=== PATIENT | female | born 1950 | race Caucasian/White ===

== ENCOUNTER → 2019-04-12 | Outpatient (CLI) | payer MEDICARE, OTHER ==
[~2019-04-12] MED LIST: CHOL100060 PO; ESOM20CA31 PO; EZET1TAB63 PO; IRON1TAB11 PO; MAX75 PO; METO25TA91 PO; MULT-1319 PO; NIAC100T35 PO
--- NOTE | 2019-04-12 14:30 | RADIOLOGY IMAGING REPORT ---
FACILITY: [facility] PATIENT NAME: Everett Ye : 1950 MR: [id number] V: [id number] EXAM DATE: ORDERING PHYSICIAN: TRINI WILLIAM TECHNOLOGIST: [place] [facility] [place] Patient: Everett Ye : 1950 Visit/Account:[id number] Date of Sevice: 04/12/2019 BONE DENSITY Additional Pertinent history: Osteoporosis screening COMPARISON STUDIES: 11/19/2009 FINDINGS: LUMBAR SPINE: The bone mineral density (BMD) measured from L1-L4 correlates with a Z-score of -0.1 and a T-score of -1.7 which is osteopenia as defined by the World Health Organization. The corresponding risk of frac ture in the lumbar spine is increased 3-4 times compared with a young adult reference population. Thi s value has decreased by 8.2% since the prior study. More than 5% change is considered significant. HIP: Bone mineral density (BMD) measured in the left femoral neck correlates with a Z-score of 0.1 and a T-score of -1.5 which is osteopenia as defined by the World Health Organization. The corresponding ri sk of fracture in the hip is increased 3 times compared with a young adult reference population. Tota l hip value has decreased by 4.4% since the prior study. More than 5% change is considered significan t. Total hip T score = -0.2 which is normal bone mineral density. Bone mineral density (BMD) measured in the left femoral neck region measures 0.83 g/cm2. IMPRESSION: 1. Lumbar spine: Osteopenia. Significant decrease in bone mineral density. 2. Left hip: Osteopenia at the femoral neck. Total hip bone mineral density is normal.. Total hip va lue has shown no significant change. Left femoral neck: bone mineral density is 0.83 g/cm2 FRAX WHO Fracture Risk Assessment Tool link: http://www.mitchel.ac.uk/FRAX/index.jsp The next DEXA scan of this patient should include the following sites: L1 - L4 and left hip PLEASE NOTE: 1. The World Health Organization defines low BMD as follows: T-score Normal > -1 Osteopenia -1 to -2.5 Osteoporosis < -2.5 without fractures Established osteoporosis < -2.5 with fractures 2. In general, you may wish to consider: Diagnosis Treatment Follow-up DEXA Normal BMD Prevention 2-3 years Osteopenia Prevention/therapy 1-2 years Osteoporosis Therapy Yearly 3. Fracture risk estimated from the T-score is more accurate for vertebral fractures (often spontaneo us) than for hip fractures. Report Dictated By: Dale Chen MD at 04/12/2019 2:23 PM Report E-Signed By: Dale Chen MD at 04/12/2019 2:25 PM LYDIAN:BRETT
--- NOTE | 2019-04-15 13:49 | RADIOLOGY IMAGING REPORT ---
FACILITY: [facility] - [place] PATIENT NAME: LIZETTE PADILLA : [id number] MR: [id number] V: [id number] EXAM DATE: [id number] ORDERING PHYSICIAN: TRINI WILLIAM TECHNOLOGIST: Jasmyn Cherry PROCEDURE: BILATERAL DIGITAL SCREENING MAMMOGRAM WITH CAD ASSISTED INTERPRETATION & 3D TOMOSYNTHESIS REASON FOR STUDY: Screening. COMPARISON: 11/11/2009. VIEWS OBTAINED: 2D & 3D full field CC & MLO. BREAST DENSITY: There are scattered areas of fibroglandular density. MAMMOGRAM FINDINGS: There is an asymmetry in the Left breast, middle 1/3 for depth that measures 5mm, only seen on the CC view. This is in the retroareolar position. Right breast demonstrates no suspicious mass, calcification, or architectural distortion. IMPRESSION: BIRADS 0: Incomplete. DIAGNOSTIC CATEGORY 0--INCOMPLETE: NEED ADDITIONAL IMAGING EVALUATION. RECOMMENDATIONS: ADDITIONAL MAMMOGRAPHIC VIEWS REQUIRED: LEFT BREAST. TURE MEDIAL LATERAL, WELL LEFT CC SPOT COMPRESSION VIEW WITH POSSIBLE ULTRASOUND OF THE LEFT BREAST NEEDED. Dictated by: Italo Garrett M.D. on 04/15/2019 at 9:05 Transcribed by: DON on 04/15/2019 at 10:01 Approved by: Italo Garrett M.D. on 04/15/2019 at 13:46 [facility]
== END ==
LOC: MAMO 01:50
PROVIDERS: ATTEND Nurse Practitioner Family
DX: R92.2 Inconclusive mammogram (principal); M85.89 Other specified disorders of bone density and structure, multiple sites
CPT/HCPCS: 77063; 77067; 77080